=== PATIENT | female | born 1975 | race Asian ===

== ENCOUNTER 2023-12-04 06:54 | Day surgery (SDC) | payer BC ==
[2023-12-02 13:35] VITALS: BMI 25.7
[2023-12-04 07:33] VITALS: RESP 16
[2023-12-04] MEDS ORDERED: PROPOFOL 20 ML ONE (08:07)
[2023-12-04] MEDS ORDERED: LIDOCAINE HCL/PF 2% SDV 5ML VIAL ONE (08:07)
[2023-12-04] MEDS ORDERED: MIDAZOLAM HCL 2 MG/2 ML SINGLE DOSE VIAL ONE (08:07)
[2023-12-04] MEDS ORDERED: LIDOCAINE HCL 2% (20ML MULTI-DOSE VIAL) ONE (08:12)
[2023-12-04 09:13] VITALS: TEMP 97.8
[2023-12-04 09:36] VITALS: BP 135/67; PULSE 69
== END 2023-12-04 09:42 | disposition home or self-care (01) ==
LOC: FASU 06:54
PROVIDERS: ATTEND Orthopaedic Surgery Hand Surgery
PROC: 01N50ZZ Release Median Nerve, Open Approach (ICD-10-PCS; principal; 2023-12-04 08:41)
DX: G56.01 Carpal tunnel syndrome, right upper limb (principal)
CPT/HCPCS: 81025